=== PATIENT | female | born 1940 | race Caucasian/White ===

== ENCOUNTER 2018-07-29 07:29 | Emergency (ER) | payer MEDICARE ==
[2018-07-29 07:36] VITALS: TEMP 97.8
--- NOTE | 2018-07-29 07:48 | ED ---
General Adult HPI - General Chief complaint: Abdominal Pain Stated complaint: left flank pain Time Seen by Provider: 07/29/18 07:38 Source: patient, RN notes reviewed, old records reviewed Mode of arrival: ambulatory Limitations: no limitations - History of Present Illness Initial comments: 77-year-old female presented for evaluation of left-sided flank pain. Patient states she's had a small degree of constant pain and left upper quadrant for the past 2 weeks. This morning patient states she went to get up to go to the bathroom and developed more severe pain in her left flank and left side of her abdomen. She denies dysuria or hematuria. States she has had increased urinary frequency over the past one week. Denies fever or chills. Denies any change in her bowels. No diarrhea. No vomiting. No chest pain or dyspnea. - Related Data Home Medications Medication Instructions Recorded Confirmed Acetaminophen Tab [Tylenol Tab] 1,000 mg PO Q6HR PRN 07/29/18 07/29/18 Aspirin EC [Ecotrin Low Dose] 81 mg PO DAILY 07/29/18 07/29/18 Calcium Carbonate [Calcium] 600 mg PO DAILY 07/29/18 07/29/18 Kelp 1 tab PO DAILY 07/29/18 07/29/18 Levothyroxine Sodium [Synthroid] 75 mcg PO DAILY 07/29/18 07/29/18 Multivitamins, Thera [Multivitamin 1 tab PO DAILY 07/29/18 07/29/18 (formulary)] Ranitidine HCl [Zantac] 150 mg PO DAILY PRN 07/29/18 07/29/18 Verapamil HCl [Calan] 120 mg PO HS 07/29/18 07/29/18 Verapamil HCl [Calan] 240 mg PO DAILY 07/29/18 07/29/18 Previous Rx's Medication Instructions Recorded Cephalexin [Keflex] 500 mg PO Q12HR #20 cap 07/29/18 Allergies Allergy/AdvReac Type Severity Reaction Status Date / Time Fvttxve-Kjs-Nzw Reductase AdvReac Abdominal Verified 07/29/18 07:49 Inhibitor Pain Review of Systems ROS Statement: Those systems with pertinent positive or pertinent negative responses have been documented in the HPI. ROS Other: All systems not noted in ROS Statement are negative. Past Medical History Past Medical History: Hypertension Additional Past Medical History / Comment(s): Hashimotos History of Any Multi-Drug Resistant Organisms: None Reported Past Surgical History: Hysterectomy Past Psychological History: No Psychological Hx Reported Smoking Status: Never smoker Past Alcohol Use History: None Reported Past Drug Use History: None Reported General Exam Limitations: no limitations General appearance: alert, in no apparent distress Head exam: Present: atraumatic, normocephalic Eye exam: Present: normal appearance, PERRL ENT exam: Present: normal exam Neck exam: Present: normal inspection. Absent: tenderness, meningismus Respiratory exam: Present: normal lung sounds bilaterally. Absent: respiratory distress, wheezes Cardiovascular Exam: Present: regular rate, normal rhythm GI/Abdominal exam: Present: soft. Absent: distended, tenderness, guarding, rebound Extremities exam: Present: normal inspection, normal capillary refill. Absent: pedal edema, calf tenderness Back exam: Present: normal inspection, full ROM. Absent: CVA tenderness (R), CVA tenderness (L) Neurological exam: Present: alert, oriented X3, CN II-XII intact. Absent: motor sensory deficit Psychiatric exam: Present: normal affect, normal mood Skin exam: Present: warm, dry, intact. Absent: cyanosis, diaphoretic Course Vital Signs 07/29/18 07/29/18 07:32 08:27 Temperature 97.8 F Pulse Rate 105 H 78 Respiratory 16 18 Rate Blood Pressure 128/85 128/83 O2 Sat by Pulse 98 100 Oximetry - Reevaluation(s) Reevaluation #1: 07/29/18 09:08 Patient reevaluated, resting comfortably, stable vitals, not requiring any pain medication. Medical Decision Making - Medical Decision Making 77-year-old female presenting for evaluation of left flank pain and Urinary frequency. Urinalysis shows 3 red cells, 10 white cells. X-rays obtained, negative for obstruction, negative for radiopaque kidney stone. CT obtained, does have several findings, however now that explain the patient's acute left flank pain. No diverticulitis. She has hydrops and cholelithiasis of the gallbladder. She has no right upper quadrant pain. She has been told that she has had gallbladder issues approximately 10 years ago. She will be given general surgery follow-up regarding this however I do not feel it is related at all to today's symptoms. No other acute findings on CT. Patient will be prescribed antibiotics for presumed urinary tract infection awaiting culture results. Please return with worsening or changing symptoms, follow-up with primary care physician. - Lab Data Lab Results 07/29/18 Range/Units 07:42 Urine Color Light Yellow Urine Appearance Cloudy H (Clear) Urine pH 8.0 (5.0-8.0) Ur Specific [place] 1.014 (1.001-1.035) Urine Protein Negative (Negative) Urine Glucose (UA) Negative (Negative) Urine Ketones Negative (Negative) Urine Blood Negative (Negative) Urine Nitrite Negative (Negative) Urine Bilirubin Negative (Negative) Urine Urobilinogen <2.0 (<2.0) mg/dL Ur Leukocyte Esterase Small H (Negative) Urine RBC 3 (0-5) /hpf Urine WBC 10 H (0-5) /hpf Ur Squamous Epith Cells <1 (0-4) /hpf Amorphous Sediment Occasional H (None) /hpf Urine Mucus Rare H (None) /hpf Disposition Clinical Impression: Abdominal pain, UTI (urinary tract infection) Disposition: HOME SELF-CARE Condition: Good Instructions (If sedation given, give patient instructions): Abdominal Pain (ED), Urinary Tract Infection in Women (ED) Prescriptions: Cephalexin [Keflex] 500 mg PO Q12HR #20 cap Is patient prescribed a controlled substance at d/c from ED?: No Referrals: Verenice Vaughn MD [Primary Care Provider] - 1-2 days Elida Albarado MD [STAFF PHYSICIAN] - 1-2 days Time of Disposition: 09:12
[2018-07-29 08:02] LABS: Amorphous Sediment,Urine Occasional /hpf; Appearance,Urine Cloudy (Clear); Bilirubin,Urine Negative (Negative); Blood,Urine Negative (Negative); Color,Urine Light Yellow; Glucose,Urine (UA) Negative (Negative); Ketones,Urine Negative (Negative); Leukocyte Esterase,Urine Small (Negative); Mucus,Urine Rare /hpf; Nitrite,Urine Negative (Negative); Protein,Urine Negative (Negative); RBC,Urine 3 /hpf (0-5); Specific Gravity,Urine 1.014 (1.001-1.035); Squamous Epithelial Cell,Urine <1 /hpf (0-4); Urobilinogen,Urine <2.0 mg/dL (<2.0); WBC,Urine 10 /hpf (0-5)
--- NOTE | 2018-07-29 08:11 | XR ---
EXAMINATION TYPE: XR KUB DATE OF EXAM: 07/29/2018 8:01 AM CLINICAL HISTORY: Left lower rib and abdominal pain. TECHNIQUE: Single upright KUB image of the abdomen is obtained. COMPARISON: None. FINDINGS: Scattered gas is seen in non-distended stomach and small bowel loops. Gas and fecal materia l is seen in non-distended colon. There is no visceromegaly or pneumoperitoneum appreciated. Vascular calcification over the mid abdomen is noted. The lung bases are clear. There is multilevel spurring and disc space narrowing in the lumbar spine. IMPRESSION: Overall nonobstructive bowel gas pattern.
[2018-07-29 08:29] VITALS: RESP 18
--- NOTE | 2018-07-29 08:50 | CT ---
EXAMINATION TYPE: CT abdomen pelvis wo con DATE OF EXAM: 07/29/2018 COMPARISON: None HISTORY: Lt flank pain CT DLP: 532.4 mGycm Examination of the solid and hollow viscera is limited given the lack of contrast. FINDINGS: LUNG BASES: No evidence for nodule. No evidence for infiltrate. LIVER/GB: There is evidence of gallbladder hydrops with measurement of 10.7 cm greatest dimension. Th ere are several calcified gallstones identified. No definite wall thickening or pericholecystic fluid at this time. Correlate clinically and consider ultrasound correlation. No space-occupying hepatic l esion. PANCREAS: No pancreatic mass identified. No inflammatory process seen. SPLEEN: No evidence for splenomegaly. No intrasplenic lesions seen. ADRENALS: No adrenal nodules identified. No evidence for thickening. KIDNEYS: No evidence for renal mass. No nephrolithiasis. No hydronephrosis. BOWEL: Appendix has a normal appearance. No evidence of bowel obstruction. No inflammatory process. Lymph nodes: No evidence for adenopathy greater than 1 cm. Abdominal aorta: Atheromatous changes seen. No evidence for aneurysm. Genital organs: No significant abnormality. Other: Severe degenerative changes lumbar spine. IMPRESSION: 1. Gallbladder hydrops cholelithiasis. 2. Severe degenerative change lumbar spine.
[2018-07-29 09:24] VITALS: BP 132/72; PULSE 72
== END 2018-07-29 09:24 | disposition home or self-care (01) ==
LOC: EC 07:29
DX: N39.0 Urinary tract infection, site not specified (principal); K80.20 Calculus of gallbladder without cholecystitis without obstruction; I10 Essential (primary) hypertension; E06.3 Autoimmune thyroiditis; Z87.19 Personal history of other diseases of the digestive system; Z90.710 Acquired absence of both cervix and uterus; Z79.82 Long term (current) use of aspirin; Z79.890 Hormone replacement therapy; Z79.899 Other long term (current) drug therapy; Z88.8 Allergy status to other drugs, medicaments and biological substances
CPT/HCPCS: 74018; 74176; 81001; 87086; 99285

== ENCOUNTER 2024-06-27 06:05 | Emergency (ER) | payer MEDICARE ==
--- NOTE | 2024-06-27 06:20 | ED ---
General Adult HPI - General Stated complaint: high blood pressure Time Seen by Provider: 06/27/24 06:20 Source: patient, EMS, RN notes reviewed, old records reviewed Mode of arrival: EMS Limitations: no limitations - History of Present Illness Initial comments: 83-year-old female presented to ER via EMS for evaluation of elevated blood pressure. Patient states she is currently following up with a college president and they are planning on making blood pressure medication adjustments. She is currently taking verapamil 240 mg daily and verapamil 120 at bedtime. Patient states she did take her bedtime dose but did not take her morning medications. Patient states when she woke up this morning she had a "feeling" sensation in her chest. She does not describe that this pain there is no radiation of this sensation. She denies any headache, dizziness, lightheadedness, nausea, vomiting or shortness of breath. No other complaints at this time. She states that she is currently being treated for UTI with Macrobid diagnosed by urgent care. No fevers, chills, abdominal pain, constipation/diarrhea or peripheral edema. - Related Data Home Medications Medication Instructions Recorded Confirmed Acetaminophen Tab [Tylenol Tab] 1,000 mg PO Q6HR PRN 07/29/18 07/29/18 Aspirin EC [Ecotrin Low Dose] 81 mg PO DAILY 07/29/18 07/29/18 Calcium Carbonate [Calcium] 600 mg PO DAILY 07/29/18 07/29/18 Kelp 1 tab PO DAILY 07/29/18 07/29/18 Levothyroxine Sodium [Synthroid] 75 mcg PO DAILY 07/29/18 07/29/18 Multivitamins, Thera [Multivitamin 1 tab PO DAILY 07/29/18 07/29/18 (formulary)] Ranitidine HCl [Zantac] 150 mg PO DAILY PRN 07/29/18 07/29/18 Verapamil HCl [Calan] 120 mg PO HS 07/29/18 07/29/18 Verapamil HCl [Calan] 240 mg PO DAILY 07/29/18 07/29/18 Previous Rx's Medication Instructions Recorded Cephalexin [Keflex] 500 mg PO Q12HR #20 cap 07/29/18 Allergies Allergy/AdvReac Type Severity Reaction Status Date / Time [place]-BMV-GiG Reductase AdvReac Abdominal Verified 06/27/24 06:21 Inhibitor Pain [Cuymqlt-Nbb-Yxv Reductase Inhibitor] Review of Systems ROS Statement: Those systems with pertinent positive or pertinent negative responses have been documented in the HPI. ROS Other: All systems not noted in ROS Statement are negative. Past Medical History Past Medical History: Hypertension Additional Past Medical History / Comment(s): Hashimotos History of Any Multi-Drug Resistant Organisms: None Reported Past Surgical History: Hysterectomy Past Psychological History: No Psychological Hx Reported Past Alcohol Use History: None Reported Past Drug Use History: None Reported General Exam Limitations: no limitations General appearance: alert, in no apparent distress Respiratory exam: Present: normal lung sounds bilaterally. Absent: respiratory distress, wheezes, rales, rhonchi, stridor Cardiovascular Exam: Present: regular rate, normal rhythm, normal heart sounds. Absent: systolic murmur, diastolic murmur, rubs, gallop, clicks Extremities exam: Present: normal inspection, full ROM, normal capillary refill. Absent: tenderness, pedal edema, joint swelling, calf tenderness Neurological exam: Present: alert, oriented X3, CN II-XII intact Skin exam: Present: warm, dry, intact, normal color. Absent: rash Course Vital Signs 06/27/24 06/27/24 06/27/24 06:18 07:58 08:50 Temperature 97.8 F 97.7 F 98.1 F Pulse Rate 80 68 61 Respiratory 18 18 18 Rate Blood Pressure 197/111 127/80 138/79 O2 Sat by Pulse 96 97 97 Oximetry EKG Findings - EKG Comments: EKG Findings:: EKG taken at 6: 17 showing a sinus rhythm. No ST segment elevati ons or depressions. No T wave inversions. Ventricular rate 75, ND interval 192, QRS duration 101, QT/QTc 392/421. Medical Decision Making - Medical Decision Making Was pt. sent in by a medical professional or institution (, PA, VETERINARY RADIOLOGIST, urgent ca re, hospital, or penitentiary...) When possible be specific @ -No Did you speak to anyone other than the patient for history (EMS, parent, family, police, friend...)? What history was obtained from this source @ -No Did you review nursing and triage notes (agree or disagree)? Why? @ -I reviewed and agree with nursing and triage notes Were old charts reviewed (outside hosp., previous admission, EMS record, old EKG, old radiological studies, urgent care reports/EKG's, penitentiary records)? Report findings @ -No old charts were reviewed Differential Diagnosis (chest pain, altered mental status, abdominal pain women, abdominal pain men, vaginal bleeding, weakness, fever, dyspnea, syncope, headache, dizziness, GI bleed, back pain, seizure, CVA, palpatations, mental health, musculoskeletal)? @ -Hypertension, hypertensive emergency, hypertension urgency, NM... This list is not meant to be all-inclusive EKG interpreted by me (3pts min.). @ -As above X-rays interpreted by me (1pt min.). @ -CXR interpreted me negative for focal consolidations, pneumothorax or pleural effusions. CT interpreted by me (1pt min.). @ -None done U/S interpreted by me (1pt. min.). @ -None done What testing was considered but not performed or refused? (CT, X-rays, U/S, labs)? Why? @ -None What meds were considered but not given or refused? Why? @ -None Did you discuss the management of the patient with other professionals (professionals i.e. , PA, VETERINARY RADIOLOGIST, lab, RT, psych nurse, manager social, stitch bonding machine drawer in, teacher, accounting officer, case operator)? Give summary @ -No Was smoking cessation discussed for >3mins.? @ -No Was critical care preformed (if so, how long)? @ -No Were there social determinants of health that impacted care today? How? (Homelessness, low income, unemployed, alcoholism, drug addiction, transportation, low edu. Level, literacy, decrease access to med. care, halfway, rehab)? @ -No Was there de-escalation of care discussed even if they declined (Discuss DNR or withdrawal of care, Hospice)? DNR status @ -No What co-morbidities impacted this encounter? (DM, HTN, Smoking, COPD, CAD, Cancer, CVA, ARF, Chemo, Hep., AIDS, mental health diagnosis, sleep apnea, morbid obesity)? @ -Hypertension Was patient admitted / discharged? Hospital course, mention meds given and route, prescriptions, significant lab abnormalities, going to OR and other pertinent info. @ -Discharge. 83-year-old female presented to the ER for evaluation of elevated blood pressures. Upon arrival patient is hypertensive at 197/111 vitals otherwise within acceptable limits. Workup in the ER unimpressive. Troponin undetectable. EKG showing a sinus rhythm no ST segment elevations or depressions. Chest x-ray negative. Patient given warning verapamil dose along with 500 mL fluid bolus in the emergency department, and with improvement to blood pressure to 138/79 upon discharge. Upon reevaluation, patient resting comfortably in exam room no signs of acute distress. Patient reporting she is hungry and requesting coffee and nasreen crackers which were provided. Results discussed with patient, all questions answered. Patient is stable for discharge at this time. Return parameters discussed. I advised close follow-up with PCP and cardiology. Patient verbally expressed understanding agree with care plan. Case discussed with ED attending, Dr. Rincon. Undiagnosed new problem with uncertain prognosis? @ -No Drug Therapy requiring intensive monitoring for toxicity (Heparin, Nitro, Insulin, Cardizem)? @ -No Were any procedures done? @ -No Diagnosis/symptom? @ -Hypertension Acute, or Chronic, or Acute on Chronic? @ -Acute Uncomplicated (without systemic symptoms) or Complicated (systemic symptoms)? @ -Uncomplicated Side effects of treatment? @ -No Exacerbation, Progression, or Severe Exacerbation? @ -No Poses a threat to life or bodily function? How? (Chest pain, USA, NM, pneumonia, PE, COPD, DKA, ARF, appy, cholecystitis, CVA, Diverticulitis, Homicidal, Suicidal, threat to staff... and all critical care pts) @ -No - Lab Data Result diagrams: 06/27/24 06:32 06/27/24 06:32 Lab Results 06/27/24 06/27/24 06/27/24 Range/Units 06:32 06:32 06:32 WBC 6.9 (3.8-10.6) k/uL RBC 4.43 (3.80-5.40) m/uL Hgb 13.7 (11.4-16.0) gm/dL Hct 42.2 (34.0-46.0) % MCV 95.3 (80.0-100.0) fL MCH 31.0 (25.0-35.0) pg MCHC 32.5 (31.0-37.0) g/dL RDW 12.9 (11.5-15.5) % Plt Count 193 (150-450) k/uL MPV 8.4 Neutrophils % 60 % Lymphocytes % 28 % Monocytes % 7 % Eosinophils % 3 % Basophils % 0 % Neutrophils # 4.1 (1.3-7.7) k/uL Lymphocytes # 1.9 (1.0-4.8) k/uL Monocytes # 0.5 (0-1.0) k/uL Eosinophils # 0.2 (0-0.7) k/uL Basophils # 0.0 (0-0.2) k/uL PT (10.0-12.5) sec INR (<1.2) APTT (22.0-30.0) sec Sodium 136 L (137-145) mmol/L Potassium 3.8 (3.5-5.1) mmol/L Chloride 104 (98-107) mmol/L Carbon Dioxide 30 (22-30) mmol/L Anion Gap 2 mmol/L BUN 11 (7-17) mg/dL Creatinine 0.50 L (0.52-1.04) mg/dL Est GFR (CKD-EPI)AfAm >90 (>60 ml/min/1.73 sqM) Est GFR (CKD-EPI)NonAf 89 (>60 ml/min/1.73 sqM) Glucose 97 (74-99) mg/dL Calcium 8.9 (8.4-10.2) mg/dL Magnesium 2.0 (1.6-2.3) mg/dL Total Bilirubin 0.7 (0.2-1.3) mg/dL AST 27 (14-36) U/L ALT 14 (4-34) U/L Alkaline Phosphatase 72 (38-126) U/L Troponin I <0.012 (0.000-0.034) ng/mL Total Protein 5.8 L (6.3-8.2) g/dL Albumin 3.4 L (3.5-5.0) g/dL 06/27/24 Range/Units 07:58 WBC (3.8-10.6) k/uL RBC (3.80-5.40) m/uL Hgb (11.4-16.0) gm/dL Hct (34.0-46.0) % MCV (80.0-100.0) fL MCH (25.0-35.0) pg MCHC (31.0-37.0) g/dL RDW (11.5-15.5) % Plt Count (150-450) k/uL MPV Neutrophils % % Lymphocytes % % Monocytes % % Eosinophils % % Basophils % % Neutrophils # (1.3-7.7) k/uL Lymphocytes # (1.0-4.8) k/uL Monocytes # (0-1.0) k/uL Eosinophils # (0-0.7) k/uL Basophils # (0-0.2) k/uL PT 10.3 (10.0-12.5) sec INR 0.9 (<1.2) APTT 19.3 L (22.0-30.0) sec Sodium (137-145) mmol/L Potassium (3.5-5.1) mmol/L Chloride (98-107) mmol/L Carbon Dioxide (22-30) mmol/L Anion Gap mmol/L BUN (7-17) mg/dL Creatinine (0.52-1.04) mg/dL Est GFR (CKD-EPI)AfAm (>60 ml/min/1.73 sqM) Est GFR (CKD-EPI)NonAf (>60 ml/min/1.73 sqM) Glucose (74-99) mg/dL Calcium (8.4-10.2) mg/dL Magnesium (1.6-2.3) mg/dL Total Bilirubin (0.2-1.3) mg/dL AST (14-36) U/L ALT (4-34) U/L Alkaline Phosphatase (38-126) U/L Troponin I (0.000-0.034) ng/mL Total Protein (6.3-8.2) g/dL Albumin (3.5-5.0) g/dL - Radiology Data Radiology results: report reviewed, image reviewed Disposition Clinical Impression: Hypertension Disposition: HOME SELF-CARE Condition: Stable Instructions (If sedation given, give patient instructions): Hypertension (ED) Additional Instructions: Take medications as prescribed. Follow-up closely with PCP in the next 1 to 3 days. Return to the ER for any new or worsening concerns. Is patient prescribed a controlled substance at d/c from ED?: No Referrals: None,Stated [REFERRING] - 1-2 days Forms: Area PCPs Time of Disposition: 08:42
[2024-06-27 06:21] VITALS: RESP 18
[2024-06-27] MEDS: ASPIRIN 81 MG PO STA (06:42)
[2024-06-27] MEDS: VERAPAMIL 40 MG TAB PO STA (06:47)
[2024-06-27] MEDS: SODIUM CHLORIDE 0.9% 500 ML 500 ML IV ONE (06:47)
[2024-06-27 06:48] LABS: Basophils % (A) 0 %; Eosinophils # (A) 0.2 k/uL (0-0.7); Eosinophils % (A) 3 %; HCT 42.2 % (34.0-46.0); HGB 13.7 gm/dL (11.4-16.0); Lymphocytes # (A) 1.9 k/uL (1.0-4.8); Lymphocytes % (A) 28 %; MCHC 32.5 g/dL (31.0-37.0); MCV 95.3 fL (80.0-100.0); Mean Platelet Volume 8.4; Monocytes # (A) 0.5 k/uL (0-1.0); Monocytes % (A) 7 %; Neutrophils # (A) 4.1 k/uL (1.3-7.7); Neutrophils % (A) 60 %; Platelet Count 193 k/uL (150-450); RBC 4.43 m/uL (3.80-5.40); RDW 12.9 % (11.5-15.5); WBC 6.9 k/uL (3.8-10.6)
[2024-06-27 07:05] LABS: ALT 14 U/L (4-34); AST 27 U/L (14-36); African American GFR (CKD) >90 (>60 ml/min/1.73 sqM); Albumin 3.4 g/dL (3.5-5.0); Alkaline Phosphatase 72 U/L (38-126); Anion Gap 2 mmol/L; Blood Urea Nitrogen 11 mg/dL (7-17); Calcium 8.9 mg/dL (8.4-10.2); Carbon Dioxide 30 mmol/L (22-30); Chloride 104 mmol/L (98-107); Glucose 97 mg/dL (74-99); Non-African American GFR(CKD) 89 (>60 ml/min/1.73 sqM); Potassium 3.8 mmol/L (3.5-5.1); Sodium 136 mmol/L (137-145); Total Bilirubin 0.7 mg/dL (0.2-1.3); Total Protein 5.8 g/dL (6.3-8.2)
--- NOTE | 2024-06-27 07:29 | XR ---
EXAMINATION TYPE: XR chest 2V DATE OF EXAM: 06/27/2024 7:12 AM COMPARISON: None CLINICAL INDICATION: Female, 83 years old with history of Chest Pain; [facility] TECHNIQUE: XR chest 2V Frontal and lateral views of the chest. FINDINGS: Lungs/Pleura: There is no evidence of pleural effusion, focal consolidation, or pneumothorax. Pulmonary vascularity: Unremarkable. Heart/mediastinum: Cardiomediastinal silhouette is unremarkable. Atherosclerotic calcifications are seen in the aorta. Musculoskeletal: No acute osseous pathology. IMPRESSION: No acute cardiopulmonary disease/process. [facility], , 06/27/2024 7:27 AM
[2024-06-27 08:23] LABS: INR 0.9 (<1.2); Prothrombin Time 10.3 sec (10.0-12.5)
[2024-06-27 08:48] LABS: Partial Thromboplastin Time 19.3 sec (22.0-30.0)
[2024-06-27 08:53] VITALS: BP 138/79; PULSE 61; TEMP 98.1
== END 2024-06-27 09:51 | disposition home or self-care (01) ==
LOC: EC 06:05
DX: I10 Essential (primary) hypertension (principal); Z88.8 Allergy status to other drugs, medicaments and biological substances
CPT/HCPCS: 36415; 71046; 80053; 83735; 84484; 85025; 85610; 85730; 93005; 99284

== ENCOUNTER 2024-07-22 09:07 | Emergency (ER) | payer MEDICARE ==
--- NOTE | 2024-07-22 09:30 | ED ---
General Adult HPI - General Chief complaint: Urogenital Stated complaint: blood in urine Time Seen by Provider: 07/22/24 09:15 Source: patient, RN notes reviewed, old records reviewed Mode of arrival: ambulatory Limitations: no limitations - History of Present Illness Initial comments: 83-year-old female presenting with an episode of hematuria. Patient noted this morning that her urine was red and there was some associated dysuria. She denies fever. She denies abdominal pain. No vomiting. Patient states she was recently treated for urinary tract infection on Macrobid. She states she has an appointment with her primary care provider in the next several days for urine recheck. No complaints otherwise. She states she has urinated since then and it seems to be improving. - Related Data Home Medications Medication Instructions Recorded Confirmed Acetaminophen Tab [Tylenol Tab] 1,000 mg PO Q6HR PRN 07/29/18 07/29/18 Aspirin EC [Ecotrin Low Dose] 81 mg PO DAILY 07/29/18 07/29/18 Calcium Carbonate [Calcium] 600 mg PO DAILY 07/29/18 07/29/18 Kelp 1 tab PO DAILY 07/29/18 07/29/18 Levothyroxine Sodium [Synthroid] 75 mcg PO DAILY 07/29/18 07/29/18 Multivitamins, Thera [Multivitamin 1 tab PO DAILY 07/29/18 07/29/18 (formulary)] Ranitidine HCl [Zantac] 150 mg PO DAILY PRN 07/29/18 07/29/18 Verapamil HCl [Calan] 120 mg PO HS 07/29/18 07/29/18 Verapamil HCl [Calan] 240 mg PO DAILY 07/29/18 07/29/18 Previous Rx's Medication Instructions Recorded Cephalexin [Keflex] 500 mg PO Q12HR #20 cap 07/29/18 Cephalexin [Keflex] 500 mg PO TID 10 Days #30 cap 07/22/24 Allergies Allergy/AdvReac Type Severity Reaction Status Date / Time [id number] Reductase AdvReac Abdominal Verified 07/22/24 09:14 Inhibitor Pain [Cithchy-Oal-Fcw Reductase Inhibitor] Review of Systems ROS Statement: Those systems with pertinent positive or pertinent negative responses have been documented in the HPI. ROS Other: All systems not noted in ROS Statement are negative. Past Medical History Past Medical History: Hypertension Additional Past Medical History / Comment(s): Hashimotos History of Any Multi-Drug Resistant Organisms: None Reported Past Surgical History: Hysterectomy Past Psychological History: No Psychological Hx Reported Past Alcohol Use History: None Reported Past Drug Use History: None Reported General Exam Limitations: no limitations General appearance: alert, in no apparent distress Head exam: Present: atraumatic, normocephalic Eye exam: Present: normal appearance, PERRL Respiratory exam: Present: normal lung sounds bilaterally. Absent: respiratory distress, wheezes Cardiovascular Exam: Present: regular rate, normal rhythm GI/Abdominal exam: Absent: distended, tenderness Neurological exam: Present: alert, oriented X3, CN II-XII intact. Absent: motor sensory deficit Psychiatric exam: Present: normal affect, normal mood Skin exam: Present: warm, dry, intact. Absent: cyanosis, diaphoretic Course Vital Signs 07/22/24 09:08 Temperature 98.3 F Pulse Rate 94 Respiratory 17 Rate Blood Pressure 172/112 O2 Sat by Pulse 97 Oximetry Medical Decision Making - Medical Decision Making Was pt. sent in by a medical professional or institution (Dr. PA, [employer]IC, urgent care, hospital, or fpc...) When possible be specific @ -No Did you speak to anyone other than the patient for history (EMS, parent, family, police, friend...)? What history was obtained from this source @ -No Did you review nursing and triage notes (agree or disagree)? Why? @ -I reviewed and agree with nursing and triage notes Were old charts reviewed (outside hosp., previous admission, EMS record, old EKG, old radiological studies, urgent care reports/EKG's, fpc records)? Report findings @ -No old charts were reviewed Differential Diagnosis: UTI, hemorrhagic cystitis, pyelonephritis, renal colic, kidney stone EKG interpreted by me (3pts min.). @ -As above X-rays interpreted by me (1pt min.). @ -None done CT interpreted by me (1pt min.). @ -None done U/S interpreted by me (1pt. min.). @ -None done What testing was considered but not performed or refused? (CT, X-rays, U/S, labs)? Why? @ -None What meds were considered but not given or refused? Why? @ -None Did you discuss the management of the patient with other professionals (professionals i.e. , PA, [employer], lab, RT, psych nurse, psychiatric social worker supervisor, char filter operator helper, teacher, earth science technical officer, rn field case manager)? Give summary @ -No Was smoking cessation discussed for >3mins.? @ -No Was critical care preformed (if so, how long)? @ -No Were there social determinants of health that impacted care today? How? (Homelessness, low income, unemployed, alcoholism, drug addiction, transportation, low edu. Level, literacy, decrease access to med. care, penitentiary, rehab)? @ -No Was there de-escalation of care discussed even if they declined (Discuss DNR or withdrawal of care, Hospice)? DNR status @ -No What co-morbidities impacted this encounter? (DM, HTN, Smoking, COPD, CAD, Cancer, CVA, ARF, Chemo, Hep., AIDS, mental health diagnosis, sleep apnea, morbid obesity)? @ -None Was patient admitted / discharged? Hospital course, mention meds given and route, prescriptions, significant lab abnormalities, going to OR and other pertinent info. @83-year-old female presenting with hematuria and mild dysuria. Patient well- appearing stable vitals. No fever. No vomiting, recent urinary tract infection. Urinalysis is hemorrhagic and has significant leukocytosis with bacteria. Repeat urine culture will be obtained. Patient will be switched to Keflex awaiting culture results. She should follow closely with her primary care provider. Undiagnosed new problem with uncertain prognosis? @ -No Drug Therapy requiring intensive monitoring for toxicity (Heparin, Nitro, Insulin, Cardizem)? @ -No Were any procedures done? @ -No Diagnosis/symptom? @Urinary tract infection Acute, or Chronic, or Acute on Chronic? @Acute Uncomplicated (without systemic symptoms) or Complicated (systemic symptoms)? @ -Default Side effects of treatment? @ -No Exacerbation, Progression, or Severe Exacerbation? @ -No Poses a threat to life or bodily function? How? (Chest pain, [place], [place], pneumonia, PE, COPD, DKA, ARF, appy, cholecystitis, CVA, Diverticulitis, Homicidal, Suicidal, threat to staff... and all critical care pts) @ -No - Lab Data Lab Results 07/22/24 Range/Units 09:25 Urine Color Red Urine Appearance Cloudy H (Clear) Urine pH 8.0 (5.0-8.0) Ur Specific [place] 1.007 (1.001-1.035) Urine Protein 1+ H (Negative) Urine Glucose (UA) Negative (Negative) Urine Ketones Negative (Negative) Urine Blood Large H (Negative) Urine Nitrite Negative (Negative) Urine Bilirubin Negative (Negative) Urine Urobilinogen <2.0 (<2.0) mg/dL Ur Leukocyte Esterase Large H (Negative) Urine RBC >182 H (0-5) /hpf Urine WBC >182 H (0-5) /hpf Urine WBC Clumps Few H (None) /hpf Urine Bacteria Rare H (None) /hpf Disposition Clinical Impression: Urinary tract infection Disposition: HOME SELF-CARE Condition: Fair Instructions (If sedation given, give patient instructions): Urinary Tract Infection in Women (ED) Prescriptions: Cephalexin [Keflex] 500 mg PO TID 10 Days #30 cap Is patient prescribed a controlled substance at d/c from ED?: No Referrals: Verenice Vaughn MD [Primary Care Provider] - 1-2 days Time of Disposition: 10:00
[2024-07-22 09:45] LABS: Appearance,Urine Cloudy (Clear); Bacteria,Urine Rare /hpf; Bilirubin,Urine Negative (Negative); Blood,Urine Large (Negative); Color,Urine Red; Glucose,Urine (UA) Negative (Negative); Ketones,Urine Negative (Negative); Leukocyte Esterase,Urine Large (Negative); Nitrite,Urine Negative (Negative); Protein,Urine 1+ (Negative); RBC,Urine >182 /hpf (0-5); Specific Gravity,Urine 1.007 (1.001-1.035); Urobilinogen,Urine <2.0 mg/dL (<2.0); WBC,Urine >182 /hpf (0-5)
[2024-07-22] MEDS: CEPHALEXIN 500 MG CAP PO STA (10:08)
[2024-07-22 10:21] VITALS: BP 155/89; PULSE 80; RESP 16; TEMP 98.1
== END 2024-07-22 10:21 | disposition home or self-care (01) ==
LOC: EC 09:07
DX: N39.0 Urinary tract infection, site not specified (principal); Z88.8 Allergy status to other drugs, medicaments and biological substances
CPT/HCPCS: 81001; 87086; 99283

== ENCOUNTER → 2024-07-26 | Outpatient (CLI) | payer MEDICARE ==
--- NOTE | 2024-07-26 16:18 | US ---
EXAMINATION TYPE: US kidneys/renal and bladder DATE OF EXAM: 07/26/2024 COMPARISON: CT abdomen and pelvis 07/29/2018 CLINICAL INDICATION: Female, 83 years old with history of R31.9 HEMATURIA, UNSPECIFIED; hematuria TECHNIQUE: Grayscale imaging of the bilateral kidneys and urinary bladder: FINDINGS: EXAM MEASUREMENTS: Right Kidney: 9.3 x 4.0 x 4.4 cm Left Kidney: 8.3 x 4.3 x 4.6 cm Right Kidney: No hydronephrosis or masses seen Left Kidney: No hydronephrosis or masses seen Bladder: anechoic Bilateral Jets seen: Yes There is no evidence for hydronephrosis at this point in time. No nephrolithiasis is seen. No julio s are identified. Corticomedullary differentiation is maintained bilaterally. The urinary bladder is anechoic. IMPRESSION: No hydronephrosis or nephrolithiasis. [facility], , 07/26/2024 4:15 PM
== END | disposition home or self-care (01) ==
LOC: RADUSWWP 15:45
PROVIDERS: ATTEND Internal Medicine
DX: R31.9 Hematuria, unspecified (principal)
CPT/HCPCS: 76770